=== PATIENT | male | born 1955 | race Caucasian/White ===

== ENCOUNTER 2020-04-06 13:37 | Observation (INO) ==
[2020-04-06 14:05] LABS: Basophils # 0.1 10*3/uL (0.0-0.2); Basophils % 0.7 % (0.0-0.8); Eosinophils # 0.2 10*3/uL (0.0-0.87); Eosinophils % 2.4 % (0.00-10.9); Hematocrit 45.3 VOL% (42.0-52.0); Hemoglobin 15.4 GM/DL (14.0-18.0); Immature Granulocytes % 0.2 %; Immature Granulocytes Absolute 0.02 #; Lymphocytes # 2.8 10*3/uL (1.4-4.0); Lymphocytes % 33.5 % (21.2-54.2); Mean Platelet Volume 9.4 FL (9.6-12.0); Monocytes % 8.4 % (1.7-12.7); Neutrophils % 54.8 % (38.7-73.9); Platelet Count 228 T/CUMM (130-400); Red Blood Count 5.15 MC/CUMM (3.8-5.5); Red Cell Distribution Width 13.2 % (9.3-17.3); White Blood Count 8.3 T/CUMM (4-12)
[2020-04-06 14:19] LABS: PT Patient Result 10.6 SECS (9.8-11.9); Partial Thromboplastin Time 27.1 SECS (23.9-33.8)
[2020-04-06 14:37] LABS: Albumin 4.2 G/DL (3.4-5.0); Bilirubin,Total 0.5 MG/DL (0.2-1.0); Calcium 9.2 MG/DL (8.5-10.1); Osmolality,Calculated 280.3 MOS/KG (273-304); Total Protein 7.1 G/DL (6.4-8.3)
[2020-04-06] MEDS ORDERED: NITROGLYCERIN 2% OINT 1 INCH/GM PACK TOP STA (15:00)
[2020-04-06] MEDS ORDERED: ENOXAPARIN 80 MG/0.8 ML SYRINGE SUBCUT STA (15:00)
[2020-04-06] MEDS ORDERED: ASPIRIN CHEW 81 MG TABLET PO STA (15:00)
[2020-04-06] MEDS ORDERED: ACETAMINOPHEN 325 MG TABLET PO PRN (15:09)
[2020-04-06] MEDS ORDERED: ONDANSETRON 4 MG/2 ML VIAL IV PRN (15:09)
[2020-04-06] MEDS ORDERED: GLUCAGON 1 MG VIAL IM PRN (15:09)
[2020-04-06] MEDS ORDERED: DEXTROSE 50% 25 GM/50 ML VIAL IV PRN (15:09)
[2020-04-06] MEDS ORDERED: MORPHINE 4 MG/1 ML VIAL IV PRN (15:09)
[2020-04-06] MEDS ORDERED: ZALEPLON 5 MG CAPSULE PO PRN (15:09)
[2020-04-06] MEDS: SODIUM CHLORIDE 0.9% 1,000 ML IV SCH (16:32)
[2020-04-06] MEDS: INSULIN REGULAR 100 UNIT/ML SUBCUT SCH ×2 (17:50→20:31)
[2020-04-06] MEDS ORDERED: ENOXAPARIN 40 MG/0.4 ML SYRINGE SUBCUT SCH (21:00)
[2020-04-06] MEDS ORDERED: ROSUVASTATIN 20 MG TABLET PO SCH (21:00)
[2020-04-06] MEDS ORDERED: SIMVASTATIN 20 MG TABLET PO SCH (21:00)
[2020-04-07] MEDS: SODIUM CHLORIDE 0.9% 1,000 ML IV SCH ×2 (00:08→08:31)
[2020-04-07 05:57] LABS: Basophils # 0.1 10*3/uL (0.0-0.2); Basophils % 0.6 % (0.0-0.8); Eosinophils # 0.2 10*3/uL (0.0-0.87); Eosinophils % 2.8 % (0.00-10.9); Hematocrit 43.9 VOL% (42.0-52.0); Hemoglobin 14.5 GM/DL (14.0-18.0); Immature Granulocytes % 0.3 %; Immature Granulocytes Absolute 0.02 #; Lymphocytes # 2.5 10*3/uL (1.4-4.0); Lymphocytes % 31.8 % (21.2-54.2); Mean Corpuscular Volume 89.6 FL (87-102); Mean Platelet Volume 10.2 FL (9.6-12.0); Monocytes % 9.2 % (1.7-12.7); Neutrophils % 55.3 % (38.7-73.9); Platelet Count 203 T/CUMM (130-400); Red Cell Distribution Width 13.1 % (9.3-17.3)
[2020-04-07 06:34] LABS: Albumin 3.3 G/DL (3.4-5.0); Bilirubin,Total 0.8 MG/DL (0.2-1.0); Calcium 8.3 MG/DL (8.5-10.1); Osmolality,Calculated 282.8 MOS/KG (273-304); Risk Ratio 4.05; Thyroid Stimulating Hormone 3.38 uIU/ml (0.358-3.74); Total Protein 6.1 G/DL (6.4-8.3)
[2020-04-07 08:13] VITALS: BP 118/75
[2020-04-07] MEDS ORDERED: TAMSULOSIN 0.4 MG CAPSULE PO SCH (09:00)
[2020-04-07] MEDS ORDERED: PANTOPRAZOLE 40 MG TABLET PO SCH (09:00)
[2020-04-07] MEDS ORDERED: ASPIRIN EC 325 MG TABLET PO SCH (09:00)
[2020-04-07] MEDS: INSULIN REGULAR 100 UNIT/ML SUBCUT SCH ×2 (10:04→12:54)
== END 2020-04-07 12:56 | disposition home or self-care (01) ==
LOC: N.EDINP 13:37 → N.ED 13:37 → N.TELES 17:15
PROVIDERS: ADMIT Internal Medicine; ATTEND Internal Medicine